=== PATIENT | male | born 1950 | race Caucasian/White ===

== ENCOUNTER → 2016-11-14 | Outpatient (CLI) | payer OTHER ==
[~2016-11-14] MED LIST: ADAL40KI SC; ATOR-22 PO; GLC500 PO; LISI10TA PO; PRLSR20 PO
[2016-11-14 12:54] LABS: CHOLESTEROL/HDL RATIO 3.6; PROSTATE SPECIFIC ANTIGEN 0.927 ng/ml (0.000-4.000)
[2016-11-14 13:41] LABS: ESTIMATED AVERAGE GLUCOSE 140 mg/dl; HA1C FLAG Normal (Normal)
== END | disposition home or self-care (01) ==
LOC: C.LABBFT 07:57
PROVIDERS: ATTEND Internal Medicine
DX: E78.5 Hyperlipidemia, unspecified (principal); N40.1 Benign prostatic hyperplasia with lower urinary tract symptoms; R73.03 Prediabetes

== ENCOUNTER → 2017-05-29 | Outpatient (CLI) | payer OTHER ==
--- NOTE | 2017-05-29 10:06 | DIAGNOSTIC IMAGING REPORT ---
(CHEST) THORAX WITHOUT CLINICAL HISTORY: R91.1 Pulmonary nodule1 year follow-[id number] COMPARISON STUDY: 05/26/2016 CT DOSE: 576.22 mGycm TECHNIQUE: CT of the thorax was performed from the thoracic inlet to the lung bases. Images are reviewed in the axial, sagittal, and coronal planes. IV contrast was not administered for this examination. A dose lowering technique was utilized adhering to the principles of ALARA. FINDINGS: Thyroid: Imaged portions of the thyroid gland are normal in appearance. Thoracic aorta: The thoracic aorta is normal in course and caliber, noting standard 3 vessel arch anatomy. Heart: There is minimal anterior pericardial thickening/fluid. Lungs and pleural spaces: Evaluation the lung bases is degraded due to respiratory motion artifact. There is a stable 1.5 mm left upper lobe pulmonary nodule as doubtful clinical significance. There is a stable solid there is a stable solid 5 mm left lower lobe pulmonary nodule 9 mm right middle lobe pulmonary nodule. Mediastinum: There is no pathologic mediastinal adenopathy by size criteria [place]: There is no evidence of pathologic hilar adenopathy given the limitations of a noncontrast study Axilla: There is no pathologic axillary lymphadenopathy Upper abdomen: There is a small hiatal hernia. Skeletal structures: There are no lytic or blastic osseous lesions. IMPRESSION: 1. Stable x2 years, solid 9 mm right middle lobe pulmonary nodule, and solid 5 mm left lower lobe pulmonary nodule. The 2 year stability is strongly indicative of a benign etiology. Electronically signed by: Van Bunn M.D. 05/29/2017 10:05 AM Dictated Date/Time: 05/29/2017 9:51 AM
== END | disposition home or self-care (01) ==
LOC: C.CTS 09:22
PROVIDERS: ATTEND Internal Medicine
DX: R91.1 Solitary pulmonary nodule (principal); R91.8 Other nonspecific abnormal finding of lung field

== ENCOUNTER → 2017-06-12 | Outpatient (CLI) | payer OTHER ==
--- NOTE | 2017-06-12 16:17 | DIAGNOSTIC IMAGING REPORT ---
R FINGER(S) MIN 2 VIEWS ROUTINE HISTORY: 66 years-old Male S69.91XA Injury of thumb, [id number] acute injury of the right thumb. COMPARISON: None available TECHNIQUE: 3 views of the right thumb FINDINGS: Mild first carpal metacarpal and mild interphalangeal degenerative changes are noted. There are mild subcortical cystic changes of the carpal bones. There is no acute fracture or dislocation identified. Mild soft tissue swelling is noted about the first metacarpal. No opaque foreign body. IMPRESSION: Mild soft tissue swelling without acute bony abnormality. The above report was generated using voice recognition software. It may contain grammatical, syntax or spelling errors. Electronically signed by: Tai Alcala M.D. 06/12/2017 4:16 PM Dictated Date/Time: 06/12/2017 4:14 PM
== END | disposition home or self-care (01) ==
LOC: C.RAD1850 15:57
PROVIDERS: ATTEND Nurse Practitioner
DX: S69.91XA Unspecified injury of right wrist, hand and finger(s), initial encounter (principal); X58.XXXA Exposure to other specified factors, initial encounter

== ENCOUNTER → 2017-12-21 | Outpatient (CLI) | payer OTHER ==
[2017-12-21 12:59] LABS: HEMOGLOBIN A1C 6.5 % (4.5-5.6)
[2017-12-21 13:20] LABS: ALBUMIN 3.5 gm/dl (3.4-5.0); ALKALINE PHOSPHATASE 100 U/L (45-117); ALT/SGPT 28 U/L (12-78); AST/SGOT 17 U/L (15-37); BLOOD UREA NITROGEN 15 mg/dl (7-18); CALCIUM 9.1 mg/dl (8.5-10.1); CARBON DIOXIDE 25 mmol/L (21-32); CHOLESTEROL 102 mg/dl (0-200); GLUCOSE 128 mg/dl (70-99); LDL CHOLESTEROL CALCULATED 55 mg/dl; POTASSIUM 4.2 mmol/L (3.5-5.1); SODIUM 139 mmol/L (136-145); TOTAL PROTEIN 7.3 gm/dl (6.4-8.2)
== END | disposition home or self-care (01) ==
LOC: C.LABBFT 07:36
PROVIDERS: ATTEND Internal Medicine
DX: E78.5 Hyperlipidemia, unspecified (principal); R73.03 Prediabetes; Z12.5 Encounter for screening for malignant neoplasm of prostate